=== PATIENT | male | born 1940 | race Caucasian/White ===

== ENCOUNTER 2017-05-20 06:33 | Day surgery (SDC) | payer MEDICARE ==
[2017-05-19 12:42] VITALS: BMI 29.6
[2017-05-20 07:27] LABS: #Basophils 0.1 thou/uL (0.0-0.2); #Eosinphils 0.2 thou/uL (0.0-0.7); #Lymphocytes 0.8 thou/uL (1.20-3.40); #Monocytes 0.8 thou/uL (0.11-0.59); #Neutrophils 4.7 thou/uL (1.40-6.50); %Basophils 1.9 % (0.0-1.0); %Lymphocytes 12.2 % (21.0-51.0); %Monocytes 11.7 % (0.0-10.0); %Neutrophils 71.2 % (42.0-75.0); Mean Corpuscular HGB CONC 33.3 g/dL (32.0-36.0); Mean Corpuscular Hemoglobin 31.5 pg (27.0-31.0); Mean Corpuscular Volume 94.6 fl (80.0-94.0); Platelet Count 210 thou/uL (130-400); RBC Distribution Width 12.1 % (11.5-14.5); Red Blood Cell (RBC) Count 4.43 mill/uL (4.70-6.10); White Blood Cell (WBC) Count 6.6 thou/uL (4.8-10.8)
[2017-05-20 07:35] LABS: Prothrombin Time 13.7 SEC (12.0-14.7)
[2017-05-20 07:53] LABS: Anion Gap 15 mmol/L (10-20); BUN (Urea Nitrogen) 15 mg/dL (8.4-25.7); Calc. Creatinine Clearance 77 mL/min (70-130); Calcium 9.5 mg/dL (7.8-10.44); Carbon Dioxide 24 mmol/L (23-31); Chloride 107 mmol/L (98-107); Estimated GFR-MDRD 72; Glucose 109 mg/dL (83-110); Sodium 142 mmol/L (136-145)
[2017-05-20] MEDS ORDERED: Scopolamine 1.5 mg/72 hour Patch ONE (07:54)
[2017-05-20] MEDS ORDERED: Vancomycin HCl 1.5 GM in Sodium Chloride 0.9% 250 ML 300 ML IVPB SCH (08:00)
[2017-05-20] MEDS ORDERED: Fentanyl 100 MCG/2 ML VIAL ONE ×3 (08:04→14:16)
[2017-05-20] MEDS ORDERED: Ropivacaine 0.2% HCl/PF 20 ML ONE (08:04)
[2017-05-20] MEDS ORDERED: Midazolam HCl 2 mg/2 ml Vial ONE (08:04)
[2017-05-20] MEDS ORDERED: HYDROmorphone 0.5 MG/0.5 ML SYRINGE ONE ×2 (08:44→08:58)
[2017-05-20] MEDS ORDERED: Ketamine 50 MG/ML VIAL ONE (08:45)
[2017-05-20] MEDS ORDERED: Zolpidem Tartrate 5 MG TAB PO PRN (08:56)
[2017-05-20] MEDS ORDERED: HYDROcodone/Acetaminophen 10/325 mg Tablet PO PRN ×2 (08:56)
[2017-05-20] MEDS ORDERED: traMADol HCl 50 MG TAB PO PRN ×2 (08:56)
[2017-05-20] MEDS ORDERED: Bupivacaine PF 0.5% 30 ML VIAL ONE (08:56)
[2017-05-20] MEDS ORDERED: Sodium Chloride 0.9% 0 ML ONE (08:56)
[2017-05-20] MEDS ORDERED: Bacitracin Zinc Ointment 30 gm TUBE ONE (08:56)
[2017-05-20] MEDS ORDERED: Ropivacaine 0.2% 550 ML 550 ML NERVE BLCK SCH (08:56)
[2017-05-20] MEDS ORDERED: Promethazine HCl 25 MG/ML VIAL IM PRN (08:56)
[2017-05-20] MEDS ORDERED: Thrombin 5000 UNITS/5 ML VIAL ONE (08:56)
[2017-05-20] MEDS ORDERED: Ondansetron HCl/PF 4 MG/2 ML Vial IVP PRN (08:56)
[2017-05-20] MEDS ORDERED: Ketorolac Tromethamine 30 MG/ML VIAL IVP PRN (08:56)
[2017-05-20] MEDS ORDERED: Sodium Chloride 0.9% 10 ML ONE (08:59)
[2017-05-20 10:08] LABS: Bilirubin Negative (Negative); Blood, Urine Large (Negative); Clarity CLEAR (Clear); Glucose, Urine (Dipstick) Negative (Negative); Leukocyte Trace (Negative); Nitrite Negative (Negative); Protein, Urine (Dipstick) Trace mg/dL (Neg-Trace); Specific Gravity, Urine 1.021 (1.002-1.036); Urobilinogen 0.2 mg/dL (0.2-1.0); pH, Urine 6.5 (5.0-9.0)
[2017-05-20 10:11] LABS: Bacteria/HPF None Seen HPF (None Seen); Hyaline Casts/LPF 0-3 HYALINE CAST LPF (0-3 Hyaline); Pathc Cast-AUWi Flag 0.13 (0-2.49); RBC/HPF GREATER THAN 50-TNTC HPF (0-3); Squamous Epithelial 0-3 HPF (0-3); WBC/HPF 0-3 HPF (0-3)
--- NOTE | 2017-05-20 10:15 | RAD ---
CHEST TWO VIEW: History: Pre op. Comparison: None. FINDINGS: There is irregular opacity in the left upper lobe. Heart size is upper limits of normal. No pneumotho rax. Mild blunting of the posterior costophrenic sulci. There is some interstitial thickening in the lung bases. Left reverse and right total shoulder arthroplasty. IMPRESSION: 1. Irregular opacity projecting over the left upper lobe may be outside of the patient. A repeat can be performed. 2. Mild interstitial prominence of the lung bases, chronic changes versus less likely edema. POS: [facility]
[2017-05-20 10:20] LABS: Renal Epithelial 0-3 HPF (0-3); Transitional Epithelial NONE SEEN HPF (0-3)
[2017-05-20] MEDS ORDERED: Ropivacaine 0.5% HCl/PF (150 MG/30 ML VIAL) ONE (10:47)
[2017-05-20] MEDS ORDERED: Metoclopramide HCl 10 MG/2 ML VIAL ONE (11:14)
[2017-05-20] MEDS ORDERED: PROPOFOL 200 MG/20 ML VIAL ONE (11:14)
[2017-05-20] MEDS ORDERED: Ondansetron HCl/PF 4 MG/2 ML Vial ONE (11:14)
[2017-05-20] MEDS ORDERED: ePHEDrine/0.9% NaCl/PF SYRINGE 50 mg/10 ml ONE (11:14)
[2017-05-20] MEDS ORDERED: Ketorolac Tromethamine 30 MG/ML VIAL ONE (11:14)
[2017-05-20] MEDS ORDERED: Lidocaine 1% PF 5 ML VIAL ONE (11:14)
--- NOTE | 2017-05-20 13:30 | RAD ---
INTRAOPERATIVE VIEWS LEFT WRIST TWO VIEWS: Clinical history: ORIF. FINDINGS: There are metallic screws traversing the proximal distal carpal row. Metallic K wire overlies the car pus. There are forceps overlying the partially imaged left hand and left forearm/carpus. IMPRESSION: Intraoperative views for fixation of carpal rows. POS: [facility]
--- NOTE | 2017-05-21 10:06 | OP ---
DATE OF SURGERY: 05/20/2017 PREOPERATIVE DIAGNOSES: 1. Tenosynovitis, wrist compartments 1 through 5. 2. 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 PROCEDURE PERFORMED: 1. Tenosynovectomy radical, to the following tendons: A. Distal carpal radialis brevis to extensor carpi radialis longus. B. Extensor digitorum communis. C. Extensor pollicis longus. D. Extensor indicis proprius, extensor digiti minimi. 2. Scaphoid excision on the C-arm supervision. 3. Four-corner arthrodesis, with screw fixation. 4. C-arm supervision. 5. Major bone graft. SPECIFIC INTRAOPERATIVE FINDINGS: 1. Severe osteoarthritis stage 3 with thinning of the triquetrum, partial fracture of triquetrum see n over the dorsal necessitating a best-fit approximation of the triquetrum and lunate into the four-c orner arthrodesis. 2. Total radioscaphoid osteoarthritis. 3. Normal lunate fossa with the radius and severe second through fifth compartment tenosynovitis pro ducing what the patient thought was "cyst" effect. DESCRIPTION OF PROCEDURE: The patient had a timeout done appropriately and was prepped and draped, a nd after identifying the appropriate site, matching the consent, the patient then had the incision ou tlined using his previous 3 cm incision in the center of the radiocarpal wrist extended at 3.5 cm pro ximal and 3 cm distal. It was carried through the skin, subcutaneous tissue, and then immediately we can see bulging tenosynovitis at the retinaculum. The retinaculum was released, so that we could fi nd an extensor pollicis longus and protect it, and then we left the flap and ulna base. We the n spread this retinaculum, and we immediately began a tenosynovectomy mostly over approximately a 3.5 cm width underneath the retinaculum for each of the tendons listed (radical tenosynovectomy) above. After this was accomplished, we then made a rectangular-shaped flap coming to a point on the radial s sky making the ulnar base and then dissected this across the carpus and radiocarpal joint until we co uld visualize all ulnar joints involving the mid carpal distal row and the radiocarpal proximal row. Here, we could see the lunate. Radiocarpal joint was completely intact while the scaphoid loss over 80% of his articular surface and approximately 50% loss of articular surface on the radius. We then began this procedure then by putting a large 0.062 K-wire threaded into the scaphoid, identified on radiographs and then excising the mass. We took it to the back table and denuded all the chondral ball rface, but it was so hard and thick, we could only achieve approximately a small amount of bone graft . We then began to soak bone graft from a cadaver in the mixture of blood and normal saline from the patient. We crushed this. Once the scaphoid was completely out and found that it could not be used for bone graft, we then bega n to denude the bone on the lunate side of capitate, capitate side of lunate, the lunate or triquetru m articulation, and then the capitohamate joint. Once this was done at least to a depth of 50% of th e capitohamate joint and then completely over the others, we noticed that there was an avulsion fract ure off of the triquetrum that was completely covered by capsule leaving a defect so to make a best f it technique, we slightly rotated the triquetrum in order to make its articular surface as parallel a s possible to the hamate and then we finished denuding all the articular surface of the hamate capita te articulation, lunotriquetral articulation, the capitate and lunate and then the capitate and hamat e. It must be noted that once we did this and had a bleeding surface of bone, there was a 3 x 4 mm c ystic change in the center capitate that we bone grafted with almost an entire chip itself, otherwise good cancellous chips in, reducing it with a K-wire and following acceptable, all reduction maintain ed. We then simply placed first a compression screw short threaded across the lunate triquetrum. Th e skin with the capitolunate joint. We maintained the wire and cut it appropriately. Then, we began progressive fixation. Next, we placed a screw over guidewire, 3.0 headless screw from [employer] into the hamate triquetral articulation maintained as much of the position as possible, then we stuffed rosaura ne graft and all the articulations except the knee 3 mm separation at the lunotriquetral area in orde r to achieve a very stable and compressed fixation at the lunate capitate articulation. All bone gra ft was in place, we finally placed a screw from the ulna entry point, opening up the sheath of the ex tensor carpi ulnaris retracting it palmarly and then placing a guidewire from the hamate to the capit ate and from the triquetrum and lunate. All screws and wires were in place now. After doing a stand nadine drill measure technique, we placed 2 screws, 1 each in the hamate to capitate, lunate to triquetr um from this vantage point and had an excellent cut and coaptation. We then placed more bone graft i nside the actual four-corner fusion area so that was appropriately stacked, we found that the lunate was in central position and passive. The patient has 65 degrees of dorsiflexion and 80 degrees of pa lmar flexion without any instability seen before closing the joint capsule. Hemostasis was obtained. We took final radiographs, removed all wires except for one wire at the initial reduction in the ca pitatolunate joint. Now, we had an excellent fixation and we accepted the slight angulation to compr ess the lunotriquetral joint and it was not bone grafts with no defect. We then cut the one wire but left it in place with augmenting the capitolunate joint with articulation arthrodesis. Once hemosta sis was obtained, we then closed the capsule back with a #1 Ethibond on OS-4 needle in a [id number] ght fashion that was not running. We then reapproximated the tenosynovectomized tendons. In each ex tensive compartment, held a retinaculum with a 3-0 interrupted Monocryl suture. Then, the marker was used as hemostasis was obtained again to close subcutaneous/deep dermis tissue while the 4-0 nylon w as used in a mattress pattern to close the epidermis. The patient then left the operating room with a bulky dressing applied after having a block and general anesthesia and a sugar tong splint in a latanya tral position at the wrist without evidence of anesthetic or operative complication.
--- NOTE | 2017-05-22 00:47 | EKG ---
Test Reason : PREOP Blood Pressure : / mmHG Vent. Rate : 081 BPM Atrial Rate : 081 BPM P-R Int : 168 ms QRS Dur : 104 ms QT Int : 374 ms P-R-T Axes : 062 -34 016 degrees QTc Int : 434 ms Normal sinus rhythm Left axis deviation Abnormal ECG When compared with ECG of 25-JUL-2016 10:56, No significant change was found Confirmed by FRANCISCA URIARTE, SMarquis ([id number]) on 05/22/2017 12:46:48 AM Referred By: ADITI Confirmed By:DR. Pebbles ESPINOSA MD
== END 2017-05-20 17:24 | disposition home or self-care (01) ==
LOC: SDC 06:33
PROVIDERS: ATTEND Orthopaedic Surgery Hand Surgery
PROC: 0LT60ZZ Resection of Left Lower Arm and Wrist Tendon, Open Approach (ICD-10-PCS; principal; 2017-05-20)
PROC: 0RGP07Z Fusion of Left Wrist Joint with Autologous Tissue Substitute, Open Approach (ICD-10-PCS; 2017-05-20)
PROC: 0RGP0KZ Fusion of Left Wrist Joint with Nonautologous Tissue Substitute, Open Approach (ICD-10-PCS; 2017-05-20)
PROC: 0RGP04Z Fusion of Left Wrist Joint with Internal Fixation Device, Open Approach (ICD-10-PCS; 2017-05-20)
DX: M65.832 Other synovitis and tenosynovitis, left forearm (principal); M19.032 Primary osteoarthritis, left wrist; E89.0 Postprocedural hypothyroidism; Z79.899 Other long term (current) drug therapy; Z98.1 Arthrodesis status; Z96.1 Presence of intraocular lens; Z96.643 Presence of artificial hip joint, bilateral; Z96.612 Presence of left artificial shoulder joint; Z96.611 Presence of right artificial shoulder joint; Z96.652 Presence of left artificial knee joint; Z98.890 Other specified postprocedural states
CPT/HCPCS: 25116; 25825; 25999; 71046; 73100; 76001; 80048; 81001; 85025; 85610; 88305; 93005; 96374; A4306; C1713 ×2; 36415; 93010; A4216; J0131; J1170; J1885; J2001; J2250; J2405; J2704; J2765; J2795; J3010; J3370; J3490; J7050; S0020

== ENCOUNTER 2017-11-04 07:13 | Day surgery (SDC) | payer MEDICARE ==
[2017-11-03 13:45] VITALS: BMI 30.4
[2017-11-04] MEDS ORDERED: Clindamycin/D5W 600 mg/50 ml Premix Bag ONE (07:55)
[2017-11-04 07:57] LABS: Hemoglobin 15.7 g/dL (14.0-18.0); Mean Corpuscular HGB CONC 32.4 g/dL (32.0-36.0); Mean Corpuscular Hemoglobin 30.3 pg (27.0-31.0); Mean Corpuscular Volume 93.5 fL (78.0-98.0); Platelet Count 180 thou/uL (130-400); RBC Distribution Width 12.7 % (11.5-14.5); Red Blood Cell (RBC) Count 5.18 mill/uL (4.70-6.10); White Blood Cell (WBC) Count 7.7 thou/uL (4.8-10.8)
[2017-11-04 07:58] LABS: #Eosinphils 0.2 thou/uL (0.0-0.7); #Lymphocytes 1.3 thou/uL (1.20-3.40); #Monocytes 0.6 thou/uL (0.11-0.59); #Neutrophils 5.6 thou/uL (1.40-6.50); %Basophils 0.5 % (0.0-1.0); %Eosinophils 2.3 % (0.0-10.0); %Lymphocytes 16.4 % (21.0-51.0); %Monocytes 7.6 % (0.0-10.0); %Neutrophils 73.3 % (42.0-75.0); Mean Platelet Volume 7.2 fL (7.4-10.4)
[2017-11-04 08:02] LABS: PTT 25.6 SEC (22.9-36.1); Prothrombin Time 13.2 SEC (12.0-14.7)
[2017-11-04 08:10] LABS: Bilirubin Negative (Negative); Blood, Urine Negative (Negative); Clarity CLEAR (Clear); Glucose, Urine (Dipstick) Negative (Negative); Leukocyte Negative (Negative); Nitrite Negative (Negative); Protein, Urine (Dipstick) Negative (Neg-Trace); Specific Gravity, Urine 1.013 (1.002-1.036); Urobilinogen 0.2 mg/dL (0.2-1.0); pH, Urine 6.5 (5.0-9.0)
[2017-11-04 08:15] LABS: Chloride 104 mmol/L (98-107); Potassium 4.4 mmol/L (3.5-5.1); Sodium 140 mmol/L (136-145)
[2017-11-04 08:16] LABS: Calcium 9.6 mg/dL (7.8-10.44); Glucose 108 mg/dL (83-110)
[2017-11-04 08:18] LABS: Anion Gap 13 mmol/L (10-20); Carbon Dioxide 27 mmol/L (23-31)
[2017-11-04 08:20] LABS: Calc. Creatinine Clearance 66 mL/min (70-130); Estimated GFR-MDRD 58
[2017-11-04 08:21] LABS: BUN (Urea Nitrogen) 20 mg/dL (8.4-25.7)
[2017-11-04] MEDS ORDERED: Scopolamine 1.5 mg/72 hour Patch ONE (08:35)
--- NOTE | 2017-11-04 08:59 | RAD ---
CHEST TWO VIEWS: History: Pre op. Comparison: 05-20-17 FINDINGS: Cardiac silhouette and pulmonary vasculature are unremarkable. Mediastinum is midline. Lungs remain h yperinflated. No confluent airspace consolidation, pneumothorax, or pleural fluid. Bilateral shoulder replacements. IMPRESSION: No active cardiopulmonary abnormalities are demonstrated. Chronic type findings are stable. POS: [facility]
[2017-11-04] MEDS ORDERED: Fentanyl 100 MCG/2 ML VIAL ONE ×2 (11:15→15:16)
[2017-11-04] MEDS ORDERED: Ondansetron HCl/PF 4 MG/2 ML Vial ONE (11:23)
[2017-11-04] MEDS ORDERED: Metoclopramide HCl 10 MG/2 ML VIAL ONE (11:23)
[2017-11-04] MEDS ORDERED: PROPOFOL 200 MG/20 ML VIAL ONE (11:23)
[2017-11-04] MEDS ORDERED: Lidocaine 1% PF 5 ML VIAL ONE (11:23)
[2017-11-04] MEDS ORDERED: ePHEDrine/0.9% NaCl/PF SYRINGE 50 mg/10 ml ONE (11:23)
[2017-11-04] MEDS ORDERED: Bacitracin Zinc Ointment 30 gm TUBE ONE (11:25)
[2017-11-04] MEDS ORDERED: Bupivacaine PF 0.5% 30 ML VIAL ONE (11:25)
[2017-11-04] MEDS ORDERED: Betamet Acet/Betamet Na Ph 30 MG/5 ML VIAL ONE (11:25)
[2017-11-04] MEDS ORDERED: Sodium Chloride 0.9% 10 ML ONE (11:25)
[2017-11-04] MEDS ORDERED: Bupivacaine HCl 0.5%/Epinephrine 1:200,000/PF 30 ml Vial ONE (13:48)
[2017-11-04] MEDS ORDERED: Ketorolac Tromethamine 30 MG/ML VIAL ONE (15:16)
--- NOTE | 2017-11-04 16:51 | RAD ---
LEFT WRIST THREE VIEWS: 11/04/17 HISTORY: Left wrist surgery. FINDINGS/IMPRESSION: Intraoperative fluoroscopy was provided for internal fixation as performed by Dr. Hale. Three spo t fluoroscopic images show three metallic screws transfixing the carpal bones. Fluoro time = 85 seconds. POS: [facility]
--- NOTE | 2017-11-04 17:19 | EKG ---
Test Reason : PREOP Blood Pressure : / mmHG Vent. Rate : 066 BPM Atrial Rate : 066 BPM P-R Int : 164 ms QRS Dur : 102 ms QT Int : 386 ms P-R-T Axes : 084 -33 003 degrees QTc Int : 404 ms Normal sinus rhythm Left axis deviation Pulmonary disease pattern Poor anterior R wave progression Abnormal ECG When compared with ECG of 20-MAY-2017 07:16, No significant change was found Confirmed by DR. Rodo BRENNER ([id number]) on 11/04/2017 5:18:33 PM Referred By: ADITI Confirmed By:DR. Rodo BRENNER
--- NOTE | 2017-11-06 08:52 | OP ---
DATE OF PROCEDURE: 11/04/2017 PREOPERATIVE DIAGNOSES: 1. Capitolunate nonunion with lunate fracture. 2. 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 POSTOPERATIVE DIAGNOSES: 1. Capitolunate nonunion with lunate fracture. 2. 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 PROCEDURES PERFORMED: 1. Ulnar styloidectomy. 2. Capitolunate fusion. 3. Open triquetral lunate fracture care. 4. Removal of deep implant, 2 K-wires and 2 screws. 5. C-arm supervision. FINDINGS: Styloid and ulna nonunion with attachment of capsular structures to the fragment . IMPLANTS: Two screws and 1 wire. ESTIMATED BLOOD LOSS: 50 mL. TOURNIQUET TIME: 100 minutes. INDICATION: The patient had had attempted fusion of 4-corner tie, had ulnar styloid nonunion that wa s impinging, and it appeared that at least one wire was protruding. Also, he was found to have on CT scan an intraoperative cut out of the screw to the lunate capitate, as well as triquetral lunate was quite thin. DESCRIPTION OF PROCEDURE: After successful general LMA technique, limb was prepped and draped. The patient had the limb exsanguinated, tourniquet inflated to 250 mmHg. Time-out was done according to standards to identify the appropriate limb. We then used the old incision and carried through skin, subcutaneous tissue, and taking it approximately 1 cm proximal for complete visualization to be able to reach the ulnar styloid. We carried through the skin and subcutaneous tissue and made a 3-cm reti nacular zigzag incision, took the contents of the fourth dorsal compartment and moved it appropriatel y. We used the same capsular-type incision before, ulnarly based. At this time, we found that the h amate to triquetrum and the hamate to capitate fusion was solid, but there had been a screw cut out w ith a fracture of the palmar and most radial aspect of the lunate. This was excised. This left abou t 70% cartilage surface covering the lunate with only minimal bone and cartilage loss, and so we deci ded at this time to remove the wire and the screws from capitate to lunate and from triquetrum to the lunate. We then re-established the subcortical, so I used the bur, rongeur, and curette of the capi [place] to lunate, which would be much better than trying to perform a capitate procedure, because the c apitate had already been into the chondral surface. Then, once we reached bleeding bone, we placed a ppropriate amount of bone graft cadaver, crushed it, and then placed a screw under compression mode, 3.0 Synthes from the lunate into the capitate in retrograde fashion over a wire. We had excellent ap position and compression of the bone grafted area. I did not attempt to be re-bone graft the capitat e to the triquetrium as this space was less than 1 mm and there was not enough room to place another screw in my opinion. The patient had the tourniquet inflated. At this time, we dissected as far ulnar as possible to eval uate the superficial ulnar nerve, then going right dorsal to this in the interval and then through EC U sheath to then make an arthrotomy into the triangular fibrocartilage joint, then slowly shell with a combination of Ritchie blade and tenotomy scissors the ulnar styloid fragment from its capsular surr oundings. The capsules around which included joint capsule, the ulnar disk ligaments were then sutur ed into the capsule. Then, we had this repair completed, we closed the subsheath with a 4-0 Prolene, closed the sheath over the extensor carpi ulnaris with 4-0 Prolene, continuous fashion running, and then we released the tourniquet. Subcutaneous closure was accomplished on the ulnar side of the wris t. The patient then had the #2 Ethibond on OS-4 needle used to close the capsule back to itself for the dorsal wrist, retinaculum repaired with 2-0 Vicryl for approximately 2 cm long repair without und ue tension of the tendons. Hemostasis was obtained and then the subcutaneous tissue was closed with running 3-0 Monocryl subcutaneous and deep with 3-0 nylon.
== END 2017-11-04 17:11 | disposition home or self-care (01) ==
LOC: SDC 07:13
PROVIDERS: ATTEND Orthopaedic Surgery Hand Surgery
PROC: 0RPP04Z Removal of Internal Fixation Device from Left Wrist Joint, Open Approach (ICD-10-PCS; principal; 2017-11-04)
PROC: 0RGP04Z Fusion of Left Wrist Joint with Internal Fixation Device, Open Approach (ICD-10-PCS; 2017-11-04)
PROC: 0PBL0ZZ Excision of Left Ulna, Open Approach (ICD-10-PCS; 2017-11-04)
DX: S62.122 Displaced fracture of lunate [semilunar], left wrist (principal); S52.612K Displaced fracture of left ulna styloid process, subsequent encounter for closed fracture with nonunion; T84.220A Displacement of internal fixation device of bones of hand and fingers, initial encounter; M19.132 Post-traumatic osteoarthritis, left wrist; Z98.890 Other specified postprocedural states; Z96.643 Presence of artificial hip joint, bilateral; Z96.611 Presence of right artificial shoulder joint; Z79.899 Other long term (current) drug therapy
CPT/HCPCS: 20680; 25820; 25999; 71046; 73100; 76001; 80048; 81003; 85025; 85610; 85730; 88307; 88311; 93005; 96374; 96375; C1713; 36415; 93010; A4216; J0670; J0702; J1885; J2001; J2405; J2704; J2765; J3010; J3490; S0020